=== PATIENT | male | born 1975 | race Caucasian/White ===

== ENCOUNTER 2019-02-23 21:53 | Emergency (ER) | payer MEDICAID ==
[~2019-02-23] VITALS: Ht 177.8 cm; Wt 84.0 kg
[2019-02-24] MEDS ORDERED: HYDROCODONE/ACETAMINOPHEN 5/325MG TABLET PO ONE (00:45)
[2019-02-24] MEDS ORDERED: TETANUS, DIPHTHERIA, PERTUSSIS VAC/PF 0.5ML (>7YR OLD) IM ONE (00:45)
[2019-02-24] MEDS ORDERED: LIDOCAINE HCL 1% 20ML VIAL (Pyxis) INJ INFIL NR (02:00)
[2019-02-24 04:10] VITALS: BP 127/82
== END 2019-02-24 04:12 | disposition home or self-care (01) ==
LOC: ER 21:53
DX: M79.604 Pain in right leg (principal); F17.200 Nicotine dependence, unspecified, uncomplicated; F12.10 Cannabis abuse, uncomplicated; W45.8XXA Other foreign body or object entering through skin, initial encounter; Y93.89 Activity, other specified; Y92.89 Other specified places as the place of occurrence of the external cause; Y99.8 Other external cause status
CPT/HCPCS: 73590; 90471; 90715; 99283; J3490; Z7610

== ENCOUNTER 2019-12-15 17:12 | Inpatient (IN) | payer MEDICAID ==
[~2019-12-15] VITALS: Ht 180.3 cm; Wt 74.8 kg
[2019-12-15] MEDS ORDERED: ONDANSETRON HCL 4MG/2ML INJ IV STA (19:29)
[2019-12-15] MEDS ORDERED: MORPHINE SULFATE 4 MG/ML CPJ (NOT FOR IM USE) IV STA (19:29)
[2019-12-15 19:53] LABS: BASOPHILS % 0.6 % (0.0-2.0); EOSINOPHILS % 2.2 % (0.0-5.0); HEMATOCRIT. 45.7 % (42.0-52.0); HEMOGLOBIN. 15.8 g/dL (14.0-18.0); LYMPHOCYTES % 17.3 % (20.0-50.0); MEAN CORPUSCULAR HEMOGLOBIN 31.8 pg (28.0-32.0); MEAN PLATELET VOLUME 6.9 fl (7.4-10.4); MONOCYTES % 7.2 % (2.0-8.0); NEUTROPHILS % 72.7 % (40.0-76.0); PLATELET 340 x1000/uL (130-400); RED BLOOD CELL COUNT 4.96 mill/uL (4.7-6.1); RED CELL DISTRIBUTION WIDTH 13.3 % (11.6-14.6)
[2019-12-15 19:57] LABS: CHLORIDE 106 mEq/L (98-107)
[2019-12-15 19:58] LABS: PROTHROMBIN TIME 10.5 sec (9.6-11.0)
[2019-12-16] MEDS ORDERED: MORPHINE SULFATE 4 MG/ML CPJ (NOT FOR IM USE) IV ONE (04:15)
[2019-12-16] MEDS ORDERED: SODIUM CHLORIDE 0.9% 1,000 ML IV ONE (07:50)
[2019-12-16] MEDS ORDERED: MORPHINE SULFATE 4 MG/ML CPJ (NOT FOR IM USE) IV PRN (08:30)
[2019-12-16] MEDS ORDERED: ONDANSETRON HCL 4MG/2ML INJ IV PRN (08:30)
[2019-12-16] MEDS ORDERED: MORPHINE SULFATE 2 MG/ML CPJ (NOT FOR IM USE) IV PRN (08:30)
[2019-12-16] MEDS ORDERED: BUPIVACAINE HCL 0.5% (5MG/ML) 50ML ONE (08:36)
[2019-12-16] MEDS ORDERED: SKIN ADHESIVE 0.7 GM EA TOP ONE (08:36)
[2019-12-16] MEDS ORDERED: LIDOCAINE HCL/PF 1% 10 MG/ML 5ML VIAL ONE (08:37)
[2019-12-16] MEDS ORDERED: SUCCINYLCHOLINE CHLORIDE 200MG/10ML IV ONE (08:37)
[2019-12-16] MEDS ORDERED: MIDAZOLAM HCL 2 MG/2 ML VIAL ONE (08:37)
[2019-12-16] MEDS ORDERED: FENTANYL CITRATE/PF 50MCG/ML 2ML VIAL ONE ×2 (08:37→09:20)
[2019-12-16] MEDS ORDERED: PROPOFOL 200MG/20ML VIAL IV ONE (08:37)
[2019-12-16] MEDS ORDERED: BACITRACIN 50,000 UNITS/VIAL ONE (08:37)
[2019-12-16] MEDS ORDERED: ROCURONIUM BROMIDE 10MG/ML VIAL 5ML IV ONE ×2 (08:38→09:45)
[2019-12-16] MEDS ORDERED: HYDRALAZINE 20MG/ML VIAL IV ONE (08:45)
[2019-12-16] MEDS ORDERED: PHENYLEPHRINE HCL 10 MG/ML 1ML (IV VIAL) IV ONE (09:14)
[2019-12-16] MEDS ORDERED: CEFAZOLIN SODIUM 1000MG/VIAL ONE (09:24)
[2019-12-16] MEDS ORDERED: ONDANSETRON HCL 4MG/2ML INJ ONE (09:26)
[2019-12-16] MEDS ORDERED: METOCLOPRAMIDE HCL 10MG/2ML VIAL ONE (09:26)
[2019-12-16] MEDS ORDERED: NEOSTIGMINE METHYLSULFATE 1MG/ML 10 ML VIAL ONE (09:47)
[2019-12-16] MEDS ORDERED: GLYCOPYRROLATE 0.2 MG/ML 2ML VIAL ONE ×2 (09:47→09:49)
[2019-12-16] MEDS ORDERED: HYDROMORPHONE HCL/PF 2MG/ML CPJ ONE (10:29)
[2019-12-16] MEDS: HYDRALAZINE 20MG/ML VIAL IV PRN ×2 (10:30→11:12)
[2019-12-16] MEDS: HYDROMORPHONE HCL/PF 2MG/ML CPJ IV PRN ×2 (11:29→12:00)
[2019-12-16] MEDS ORDERED: METOPROLOL TARTRATE 5MG/5ML VIAL IV PRN (13:15)
[2019-12-16] MEDS ORDERED: ACETAMINOPHEN 325MG TABLET PO PRN (14:00)
[2019-12-16 14:40] VITALS: BP 154/95
[2019-12-16] MEDS ORDERED: HYDRALAZINE 20MG/ML VIAL IV SCH (18:00)
[2019-12-16 20:00] VITALS: BP 169/98
[2019-12-16] MEDS: HYDRALAZINE 10 MG in SODIUM CHLORIDE 0.9% 49.5 ML IV SCH (20:56)
[2019-12-16] MEDS: DEXT 5%/0.45% NACL KCL 20MEQ/L 1,000 ML IV SCH (20:57)
[2019-12-17] VITALS (7 sets, daily range): BP systolic 148–169; BP diastolic 93–113
[2019-12-17] MEDS: HYDRALAZINE 10 MG in SODIUM CHLORIDE 0.9% 49.5 ML IV SCH ×2 (01:59→09:21)
[2019-12-17 07:22] LABS: BASOPHILS % 0.4 % (0.0-2.0); EOSINOPHILS % 0.3 % (0.0-5.0); HEMOGLOBIN. 15.2 g/dL (14.0-18.0); LYMPHOCYTES % 11.3 % (20.0-50.0); MEAN CORPUSCULAR HEMOGLOBIN 32.3 pg (28.0-32.0); MEAN CORPUSCULAR VOLUME 93.4 fL (80.0-94.0); MEAN PLATELET VOLUME 7.3 fl (7.4-10.4); PLATELET 338 x1000/uL (130-400); RED BLOOD CELL COUNT 4.71 mill/uL (4.7-6.1); RED CELL DISTRIBUTION WIDTH 13.1 % (11.6-14.6)
[2019-12-17 07:27] LABS: CHLORIDE 103 mEq/L (98-107)
[2019-12-17] MEDS ORDERED: HYDRALAZINE 20MG/ML VIAL IV SCH (09:00)
[2019-12-17] MEDS: ENOXAPARIN 40MG/0.4ML SYR SUBCUT SCH (09:21)
[2019-12-17] MEDS ORDERED: HYDRALAZINE 20MG/ML VIAL IV PRN (09:30)
[2019-12-17] MEDS ORDERED: HYDRALAZINE 10 MG in SODIUM CHLORIDE 0.9% 49.5 ML IV PRN (09:30)
[2019-12-17] MEDS ORDERED: CLONIDINE 0.1MG TABLET PO PRN (12:00)
[2019-12-17] MEDS: LOSARTAN POTASSIUM 100 MG TABLET PO SCH (12:02)
[2019-12-17] MEDS: DEXT 5%/0.45% NACL KCL 20MEQ/L 1,000 ML IV SCH (13:00)
[2019-12-17] MEDS: AMLODIPINE 5MG TABLET PO SCH (21:12)
[2019-12-18] VITALS: BP 158/99
[2019-12-18 04:00] VITALS: BP 159/95
[2019-12-18 08:00] VITALS: BP 134/78
[2019-12-18] MEDS: DEXT 5%/0.45% NACL KCL 20MEQ/L 1,000 ML IV SCH (08:19)
[2019-12-18] MEDS: AMLODIPINE 5MG TABLET PO SCH (09:08)
[2019-12-18] MEDS: LOSARTAN POTASSIUM 100 MG TABLET PO SCH (09:09)
[2019-12-18] MEDS: ENOXAPARIN 40MG/0.4ML SYR SUBCUT SCH (09:09)
[2019-12-18] MEDS ORDERED: HYDR-4135 MT (11:52)
[2019-12-18] MEDS ORDERED: LOSA100T3 PO (11:52)
[2019-12-18 12:00] VITALS: BP 137/84
[2019-12-18 13:22] VITALS: BP 121/74
== END 2019-12-18 14:09 | disposition home or self-care (01) | DRG 228 ==
LOC: ER 17:12 → ORIP 21:47 → 6EST 12-16 15:21
PROVIDERS: ADMIT Internal Medicine; ATTEND Internal Medicine
PROC: 0YU50JZ Supplement Right Inguinal Region with Synthetic Substitute, Open Approach (ICD-10-PCS; principal; 2019-12-16)
DX: K40.30 Unilateral inguinal hernia, with obstruction, without gangrene, not specified as recurrent (principal); F12.90 Cannabis use, unspecified, uncomplicated; I16.0 Hypertensive urgency; I10 Essential (primary) hypertension; Z90.5 Acquired absence of kidney
CPT/HCPCS: 36415; 74176; 80048; 80053; 83605; 85025; 99285; C1781; J0330; J0360; J0690; J1170; J1650; J2250; J2270; J2370; J2405; J2704; J2710; J2765; J3010; J3490; J7030